=== PATIENT | male | born 2000 | race Caucasian/White ===

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

== ENCOUNTER 2018-06-07 13:14 | Emergency (ER) | payer OTHER ==
[2018-06-07 13:22] VITALS: BP 120/56
--- NOTE | 2018-06-07 13:27 | UC ---
FLU HPI - HPI Summary HPI Summary: pt states on saturday he had a temp of 101. pt states this am it was the highest at 102. pt states he is sweating has a cough and a sore throat. pt also had body aches. - History of Current Complaint Chief Complaint: UCGeneralIllness Stated Complaint: FEVER Time Seen by Provider: 06/07/18 13:21 Hx Obtained From: Patient Onset/Duration: Sudden Onset, Lasting Days Severity Currently: Mild Severity Initially: Mild Pain Intensity: 0 Associated Signs & Symptoms: Positive: Fever, Myalgia, Cough, Sore Throat, Headache - Allergy/Home Medications Allergies/Adverse Reactions: Allergies Allergy/AdvReac Type Severity Reaction Status Date / Time Sulfa (Sulfonamide Allergy Rash Verified 06/07/18 13:22 Antibiotics) Home Medications: Home Medications Acetaminophen 650 mg PO 06/07/18 [History] Ibuprofen 400 mg PO 06/07/18 [History] PMH/Surg Hx/FS Hx/Imm Hx Previously Healthy: Yes - Surgical History Surgical History: Yes Surgery Procedure, Year, and Place: wisdom teeth extraction, t&a. - Family History Known Family History: Positive: None Negative: Cardiac Disease, Hypertension - Social History Alcohol Use: None Substance Use Type: None Smoking Status (MU): Never Smoked Tobacco Review of Systems All Other Systems Reviewed And Are Negative: Yes Constitutional: Positive: Fever, Chills, Fatigue Skin: Positive: Negative Eyes: Positive: Negative ENT: Positive: Sore Throat Respiratory: Positive: Cough Cardiovascular: Positive: Negative Gastrointestinal: Positive: Negative Genitourinary: Positive: Negative Motor: Positive: Negative Neurovascular: Positive: Negative Musculoskeletal: Positive: Myalgia Neurological: Positive: Headache Psychological: Positive: Negative Is Patient Immunocompromised?: No Physical Exam Triage Information Reviewed: Yes Appearance: Well-Nourished, Ill-Appearing, Pain Distress Vital Signs: Initial Vital Signs Temp 97.6 F 06/07/18 13:18 Pulse 60 06/07/18 13:18 Resp 18 06/07/18 13:18 BP 120/56 06/07/18 13:18 Pulse Ox 97 06/07/18 13:18 Vital Signs Reviewed: Yes Eye Exam: Normal ENT: Positive: Pharynx normal - some PND noted, TMs normal Dental Exam: Normal Neck exam: Normal Neck: Positive: Supple, Nontender, No Lymphadenopathy Respiratory Exam: Normal Respiratory: Positive: Chest non-tender, Lungs clear, Normal breath sounds Cardiovascular Exam: Normal Cardiovascular: Positive: RRR, No Murmur, Pulses Normal Abdominal Exam: Normal Abdomen Description: Positive: Nontender, No Organomegaly, Soft Musculoskeletal Exam: Normal Neurological Exam: Normal Psychological Exam: Normal Skin Exam: Normal Flu Course/Dx - Course Course Of Treatment: hx obtained, exam performed, meds reviewed, rapid flu obtained and is negative. - Differential Dx/Diagnosis Differential Diagnosis/HQI/PQRI: Bronchitis, Influenza, Upper Respiratory Infection Provider Diagnosis: Viral syndrome Discharge - Sign-Out/Discharge Documenting (check all that apply): Patient Departure All imaging exams completed and their final reports reviewed: No Studies - Discharge Plan Condition: Stable Disposition: HOME Patient Education Materials: Viral Syndrome (ED) Referrals: No Primary Care Phys,NOPCP [Primary Care Provider] - Additional Instructions: 1. increase fluids, get plenty of rest 2. follow up if not improving in the next week. - Billing Disposition and Condition Condition: STABLE Disposition: Home - Attestation Statements Provider Attestation: I was available for consult. This patient was seen by the LIZBETH. The patient was not presented to, seen by, or examined by me. -Jose
[2018-06-07 13:46] LABS: Influenza A Molecular NEGATIVE (Negative); Influenza B Molecular NEGATIVE (Negative)
== END 2018-06-07 13:55 | disposition home or self-care (01) ==
LOC: UCEAST 13:14
DX: B34.9 Viral infection, unspecified (principal); R05 Cough; J02.9 Acute pharyngitis, unspecified; M79.10 Myalgia, unspecified site; R51 Headache; R09.82 Postnasal drip; Z88.2 Allergy status to sulfonamides
CPT/HCPCS: 99211; G0463